=== PATIENT | male | born 1955 | race Caucasian/White ===

== ENCOUNTER 2018-05-22 21:45 | Emergency (ER) | payer OTHER, SELFPAY ==
[2018-05-22 21:59] VITALS: BP 123/69; PULSE 67; RESP 18; TEMP 37.1; O2SAT 97; BMI 20.9
--- NOTE | 2018-05-22 22:03 | ED_ITS ---
HPI - Extremity Problem General Chief complaint: Extremity Problem,Nontraumatic Stated complaint: right knee red and swelling Time Seen by Provider: 05/22/18 22:03 Source: patient Mode of arrival: ambulatory Limitations: no limitations History of Present Illness HPI Narrative: otherwise healthy 62-year-old male here for evaluation of redness on his right knee. He denies any trauma. He states that in the past he had a septic bursitis and stated that it presented itself and worsened within about 24 hr. He stated that this feels similar to that But in a different location. He states that he is leaving on a 5 day trip to [place] to do a job. 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 Related Data Previous Rx's Medication Instructions Recorded doxycycline hyclate 100 mg PO BID 7 Days #14 cap 05/22/18 Allergies Allergy/AdvReac Type Severity Reaction Status Date / Time Penicillins Allergy Verified 05/22/18 22:02 Review of Systems Constitutional Denies chills, Reports fatigue and Denies fever(s) Cardiovascular Denies chest pain and Denies dyspnea Respiratory Denies dyspnea Gastrointestinal Gastrointestinal: Denies abdominal pain Musculoskeletal Denies myalgias and Reports arthralgias ( Right knee) Integumentary/Breasts Comments: redness on the front of his right knee Endocrine Reports fatigue Hematologic/Lymphatic Denies easy bleeding and Denies easy bruising FOR[facility], LAT[facility] Medical History Healthy adult (Acute) Surgical History No pertinent past surgical history (Acute) Social History Smoking Status: Never smoker Exam Initial Vital Signs Initial Vital Signs: Vital Signs Temperature 98.7 F 05/22/18 21:59 Pulse Rate 67 05/22/18 21:59 Respiratory Rate 18 05/22/18 21:59 Blood Pressure 123/69 05/22/18 21:59 Pulse Oximetry 97 05/22/18 21:59 Const General: cooperative, comfortable, well developed, well groomed and No acute distress Orientation: alert, awake and oriented x3 HENMT Head: normal to inspection and normocephalic Resp Effort & Inspection: normal respiratory effort Skin Other: patient with very minimal redness just inferior to the patella on his right knee that does extend both medially and laterally. Does not extend inferior to the tibial tuberosity. No warmth to touch. No vesicles. Neuro Other: Sensation intact to light touch over the right knee Extrem Other: full range of motion of the right knee. No effusion. No swelling noted in the bursa around the knee. Psych Appearance: grossly normal and well kempt Course Vital Signs - 8 hr 05/22/18 21:59 Temperature 98.7 F Pulse Rate 67 Respiratory Rate 18 Blood Pressure 123/69 Pulse Oximetry 97 MDM - Extremity (Nontraumatic) MDM Narrative Medical decision making narrative: Patient does have full range of motion of the right knee. No trauma. Will hold on any x-rays. Does have some redness over the anterior knee. I have low suspicion for cellulitis. Patient is very concerned given his prior episodes of septic bursitis. There is no indication for aspiration today. After discussion with the patient we will discharge him with a prescription for antibiotics. He was informed to hold on this prescription unless the redness worsens or he starts to develop fevers of more pain. I recommended that he also started anti-inflammatories. He was given return precautions. He expressed understanding and agreement with plan Discharge Plan Departure Patient Disposition: Home Clinical Impression: Knee pain, right Instructions: DI for Cellulitis -- Adult, Bursitis, DI for Knee Pain Activity Restrictions/Additional Instructions: I would recommend that you start anti-inflammatories such as Motrin / Naprosyn as directed on the bottle for inflammation. I would recommend that you hold on filling the prescription of antibiotics unless the right knee redness worsens or you start to develop pain or fevers. You were given instructions for bursitis and cellulitis so that you can had information with regard to what to watch for. Follow up with your primary care doctor. Return to the emergency department for any new or worsening symptoms Prescriptions: New doxycycline hyclate 100 mg capsule 100 mg PO BID 7 Days Qty: 14 RF: 0
== END 2018-05-22 22:34 | disposition home or self-care (01) ==
PROVIDERS: Emergency Provider Emergency Medicine
DX: M25.561 Pain in right knee (principal)
CPT/HCPCS: 99282

== ENCOUNTER → 2019-06-01 09:42 | Outpatient (CLI) | payer OTHER, SELFPAY ==
--- NOTE | 2019-06-01 | DI.MRI.S_ITS ---
PROCEDURE: MR SHOULDER LT WO CON INDICATIONS: Pain in left shoulder TECHNIQUE: Noncontrast oblique coronal T2 fast spin echo with fat saturation, oblique sagittal T1 spin echo and T2 fast spin echo with fat saturation, axial T1 spin echo and T2 fast spin echo with fat saturation through the shoulder. COMPARISON: None. FINDINGS: Image quality: Diagnostic. Rotator cuff: No definite full-thickness tear of the rotator cuff is identified. Increased signal is present involving the distal supraspinatus and infraspinatus tendons with possible areas of low grade partial thickness tearing along the bursal and articular surfaces. The subscapularis and teres minor tendons are intact. There is no significant atrophy of the rotator cuff muscles. Bones and bursae: No acute fracture or dislocation is evident. There are mild degenerative changes of the glenohumeral joint with minimal degenerative cystic changes noted along the posterior margin of the humeral head. No significant glenohumeral joint effusion is identified. There are moderate degenerative changes of the acromial clavicular joint with reactive marrow changes present and mild downsloping of the lateral acromion. A small amount fluid is contained within the subacromial subdeltoid bursa. Capsule and soft tissues: Evaluation of the labrum and the glenohumeral ligaments is difficult without intra-articular contrast. No displaced labral tears are evident. Slight increase signal involving the superior labrum is noted. There is mild edema about the inferior glenohumeral ligament and within the region of the expected location of the joint capsule of the rotator interval. There is mild increased signal involving the long head of the biceps tendon along its intra-articular course without significant tearing appreciated. This tendon is normally positioned within the bicipital groove. IMPRESSION: 1. Low-grade partial-thickness tearing and tendinopathy of the supraspinatus and infraspinatus tendons. 2. Mild tendinopathy involving the long head of the biceps tendon. 3. Edema about the joint capsule is nonspecific. Clinical correlation to exclude adhesive capsulitis is recommended. A superimposed inferior glenohumeral ligament sprain is difficult to exclude. 4. Mild to moderate degenerative changes of the left shoulder joints. Dictated by: Kartik Corbett M.D. on 06/01/2019 at 10:14 Approved by: Kartik Corbett M.D. on 06/01/2019 at 10:16
--- NOTE | 2019-06-01 | DI.RAD.S_ITS ---
PROCEDURE: XR EYE FOREIGN BODY RT INDICATIONS: POSSIBLE OBJECT IN EYE TECHNIQUE: A single view of the orbits was acquired. COMPARISON: None. FINDINGS: Soft tissues: No metallic foreign bodies are visualized around the orbits. Bones: Bony structures appear unremarkable. Visualized sinuses appear clear. IMPRESSION: No radiopaque foreign bodies identified. Dictated by: Maribell Leblanc M.D. on 06/01/2019 at 10:07 Approved by: Maribell Leblanc M.D. on 06/01/2019 at 10:07
== END ==
PROVIDERS: Visit Provider Family Medicine
DX: M25.512 Pain in left shoulder (principal); M75.112 Incomplete rotator cuff tear or rupture of left shoulder, not specified as traumatic; M25.412 Effusion, left shoulder
CPT/HCPCS: 70030; 73221

== ENCOUNTER → 2020-04-30 16:53 | Outpatient (CLI) | payer OTHER, SELFPAY ==
--- NOTE | 2020-04-30 | DI.MRI.S_ITS ---
PROCEDURE: MR SHOULDER RT WO CON INDICATIONS: Radiculopathy, lumbar region TECHNIQUE: Noncontrast oblique coronal T2 fast spin echo with fat saturation, oblique sagittal T1 spin echo and T2 fast spin echo with fat saturation, axial T1 spin echo and T2 fast spin echo with fat saturation through the shoulder. COMPARISON: [facility], MR, MR SHOULDER LT WO CON, 06/01/2019, 10:04. FINDINGS: Image quality: Excellent. Rotator cuff: Tendinosis and low-grade articular and bursal surface partial thickness tear involving distal supraspinatus and infraspinatus is seen at their insertion on the humeral head extending to musculotendinous junction. Distal subscapularis tendinosis is also noted. No full-thickness rotator cuff tendon rupture. Sagittal images demonstrate no significant muscle atrophy. Bones and bursae: No bone marrow contusions or fractures. Moderate acromioclavicular joint osteoarthritic changes are seen with downward osteophyte formation depressing the musculotendinous junction of supraspinatus. Mild to moderate glenohumeral joint osteoarthritic changes also seen. No pathologic subacromial-subdeltoid or subcoracoid bursal fluid is present. Capsule and soft tissues: In the absence of intra-articular contrast, there is suggestion of superior anterior labral tear at 12 to 2 o'clock position. The glenohumeral ligaments appear intact. The long head of the biceps tendon demonstrates normal location and morphology. The rotator interval appears normal, without fibrosis. The coracohumeral ligament is normal in thickness. IMPRESSION: 1. Tendinosis and low-grade articular and bursal surface partial thickness tear involving distal supraspinatus and infraspinatus extending to musculotendinous junction. No full-thickness rotator cuff tendon rupture. Distal subscapularis tendinosis. 2. Suggestion of superior anterior labral tear at 12 to 2 o'clock position. 3. Moderate acromioclavicular joint and glenohumeral joint osteoarthritis. No fracture or dislocation. Dictated by: Ford Choudhury M.D. on 05/01/2020 at 8:47 Approved by: Ford Choudhury M.D. on 05/01/2020 at 8:52
== END ==
PROVIDERS: PCP Physician Assistant; Referring Provider Physician Assistant; Visit Provider Physician Assistant
DX: S46.011A Strain of muscle(s) and tendon(s) of the rotator cuff of right shoulder, initial encounter (principal); M25.511 Pain in right shoulder; M19.011 Primary osteoarthritis, right shoulder; M54.16 Radiculopathy, lumbar region; X58.XXXA Exposure to other specified factors, initial encounter
CPT/HCPCS: 73221

== ENCOUNTER → 2020-05-13 16:55 | Outpatient (CLI) | payer OTHER, SELFPAY ==
--- NOTE | 2020-05-13 | DI.MRI.S_ITS ---
PROCEDURE: MR THORACIC SPINE WO CON INDICATIONS: Upper back pain TECHNIQUE: Noncontrast sagittal T1 spine echo and T2 fast spin echo, sagittal STIR, axial T1 and T2 fast spin echo through the thoracic spine. COMPARISON: [facility], MR, MR LUMBAR SPINE WITHOUT CONTRAST, 10/14/2018, 13:03. [facility], MR, MR CERVICAL SPINE WITHOUT CONTRAST, 10/14/2018, 12:41. [facility], CR, XR THORACIC SPINE 2 VIEWS, 05/13/2020, 16:00. FINDINGS: Image quality: Excellent. Alignment and Curvature: Mild dextroconvex scoliotic curvature is seen. Bone Marrow: Marrow is of normal overall signal. No acute vertebral body compression fractures. Spinal Cord: Visualized spinal cord is normal in size and signal. Paraspinous Soft Tissues: No paravertebral masses. Miscellaneous: At T6-T7, there is a central disc protrusion, as on series 7, image 29 and on series 6 image 8. There is mild central canal narrowing, with mild to moderate mass effect upon the ventral spinal cord. At T7-T8, there is a mild central/right disc osteophyte protrusion seen, as on series 8, image 7. Minimal central canal narrowing is seen. No associated mass effect is seen. Milder degenerative changes are seen elsewhere. No significant neural foraminal narrowing can be seen. IMPRESSION: At the T6-T7 level, there is a central disc protrusion, with associated mass effect upon the ventral spinal cord. Milder degenerative changes are seen elsewhere. Mild dextroconvex thoracic scoliotic curvature is seen. Dictated by: Greg Lucia M.D. on 05/13/2020 at 18:08 Approved by: Greg Lucia M.D. on 05/13/2020 at 18:10
== END ==
PROVIDERS: PCP Physician Assistant; Referring Provider Physician Assistant; Visit Provider Physician Assistant
DX: M51.14 Intervertebral disc disorders with radiculopathy, thoracic region (principal); M47.24 Other spondylosis with radiculopathy, thoracic region; M41.84 Other forms of scoliosis, thoracic region
CPT/HCPCS: 72146

== ENCOUNTER → 2021-03-31 13:45 | Outpatient (CLI) | payer OTHER, SELFPAY ==
--- NOTE | 2021-03-31 13:45 | DI.MRI.S_ITS ---
PROCEDURE: MR CERVICAL SPINE WO/W CON INDICATIONS: Right arm radiculopathy TECHNIQUE: Noncontrast sagittal T1 spin echo and T2 fast spin echo, sagittal STIR, foraminal oblique sagittal T2 fast spin echo, axial gradient echo or T2 fast spin echo through the cervical spine. After the administration of contrast, axial and sagittal T1 spin echo with fat saturation through the cervical spine. COMPARISON: None. FINDINGS: Image quality: Excellent. Alignment and curvature: There is normal bony alignment. Marrow: Marrow is normal in overall signal, without suspicious enhancement. Spinal cord: Visualized spinal cord has normal size and signal. No cerebellar tonsillar herniation. No abnormal intramedullary enhancement. Regional soft tissues: No paravertebral masses or suspicious enhancement. C2-3: No spinal canal or neural foraminal stenosis. C3-4: Mild right neural foraminal narrowing due to facet and uncovertebral hypertrophy. No spinal canal stenosis. C4-5: Mild bilateral neural foraminal narrowing due to facet and uncovertebral hypertrophy. No spinal canal stenosis. C5-6: Moderate bilateral neural foraminal narrowing due to facet and uncovertebral hypertrophy. No spinal canal stenosis. C6-7: Severe right and mild left neural foraminal narrowing due to facet and uncovertebral hypertrophy. C7-T1: No spinal canal or neural foraminal stenosis. IMPRESSION: Multilevel multifactorial degenerative changes resulting in varying degrees of neural foraminal stenosis, severe on the right at C6-C7 and moderate on the right at C5-C6. Correlate for any corresponding right C6 or C7 radicular symptoms. Dictated by: David Hudson M.D. on 03/31/2021 at 16:03 Approved by: David Hudson M.D. on 03/31/2021 at 16:13
--- NOTE | 2021-03-31 13:45 | DI.MRI.S_ITS ---
PROCEDURE: MR HAND RT WO CON INDICATIONS: Right thumb pain TECHNIQUE: Noncontrast coronal T1 spin echo and T2 fast spin echo with fat saturation, axial proton density fast spin echo and T2 fast spin echo with fat saturation, sagittal T1 spin echo and STIR through the hand and fingers. COMPARISON: [facility] ([place] CR, XR HAND RT MIN 3V, 11/25/2020, 11:21. FINDINGS: Image quality: Excellent. Bones: The bones are normally aligned, without marrow contusions or fractures. No intra-osseous lesions. Small chronic cystic changes are seen in the distal ulna as well as in the proximal lunate. There is neutral ulnar variance. The 1st metacarpophalangeal joint is normally aligned. Mild 1st metacarpophalangeal osteoarthrosis. Minimal degenerative changes are seen at the 1st carpometacarpal joint. Soft tissues: Trace edema is seen in the distal abductor pollicis brevis muscle (image 42 of series 7 and image 7 of series 9) that is suspicious for a low-grade strain. Visualized muscles demonstrate otherwise normal bulk and internal signal. No intramuscular masses identified. No ganglion cysts. The ulnar and radial collateral ligaments at the 1st metacarpophalangeal joint appear to be intact. The adductor aponeurosis is intact. The volar plate is intact. The extensor tendon insertion appears to be intact. A small focus of micro talc artifact is seen at the volar aspect of the distal thumb adjacent to the skin surface, corresponding to the punctate foreign body in the prior radiograph from 11/25/2020. IMPRESSION: 1. Suspected low-grade strain of the distal abductor pollicis brevis muscle near its distal insertion onto the 1st proximal phalangeal base. 2. No acute osseous abnormality. No significant ligamentous or tendon injury is seen. 3. Punctate focus of micrometallic artifact at the volar aspect of the thumb adjacent to the skin surface may represent a tiny metallic foreign body, which may be in the skin. Dictated by: Iván Tate M.D. on 03/31/2021 at 15:33 Approved by: Iván Tate M.D. on 03/31/2021 at 15:46
== END ==
PROVIDERS: PCP Physician Assistant; Referring Provider Physician Assistant; Visit Provider Physician Assistant
DX: M47.22 Other spondylosis with radiculopathy, cervical region (principal); M54.2 Cervicalgia; S63.681A Other sprain of right thumb, initial encounter; M79.644 Pain in right finger(s); G89.29 Other chronic pain
CPT/HCPCS: 72156; 73218; A9579

== ENCOUNTER → 2021-04-02 13:43 | Outpatient (CLI) | payer OTHER, SELFPAY ==
--- NOTE | 2021-04-02 13:44 | DI.RAD.S_ITS ---
PROCEDURE: XR CERVICAL SPINE 4V OR 5V INDICATIONS: NECK PAIN TECHNIQUE: 5 views of the cervical spine acquired. COMPARISON: None. FINDINGS: Bones: No fractures or dislocations to the C7-T1 level. Degenerative endplate changes are noted throughout cervical spine. Bilateral facet hypertrophic changes also seen. There is grade 1 anterolisthesis of C7 on T1. Oblique images demonstrate bilateral bony foraminal stenosis at C4-5 and C5-6 levels. Soft tissues: No prevertebral soft tissue swelling. IMPRESSION: Degenerative disc disease throughout cervical spine with bilateral bony foraminal stenosis at C4-5 and C5-6 levels. No acute fracture or dislocation. Dictated by: Ford Choudhury M.D. on 04/02/2021 at 15:19 Approved by: Ford Choudhury M.D. on 04/02/2021 at 15:20
== END ==
PROVIDERS: PCP Physician Assistant; Referring Provider Physical Medicine & Rehabilitation; Visit Provider Physical Medicine & Rehabilitation
DX: M50.31 Other cervical disc degeneration, high cervical region (principal); M48.02 Spinal stenosis, cervical region
CPT/HCPCS: 72050

== ENCOUNTER → 2021-04-14 08:20 | Outpatient (CLI) | payer OTHER, SELFPAY ==
[2021-04-14 19:54] LABS: Add Manual Diff / Slide Review NO; Basophils Absolute Auto 100 /uL (0-100); Basophils Percent Auto 1.3 % (0-2); Eosinophils Absolute Auto 100 /uL (0-450); Eosinophils Percent Auto 2.3 % (2-4); Hematocrit 46.5 % (41-53); Hemoglobin 15.2 g/dL (13.5-17.5); Lymphocytes Absolute Auto 1700 /uL (1100-4500); Lymphocytes Percent Auto 30.5 % (25-40); Mean Corpuscular HGB Conc 32.8 % (30-36); Mean Corpuscular Volume 91.6 fL (80-100); Monocytes Absolute Auto 600 /uL (0-900); Monocytes Percent Auto 11.5 % (3-14); Neutrophils Absolute Auto 3000 /uL (1500-7000); Neutrophils Percent Auto 54.4 % (50-75); Platelet Count 250 X10^3/uL (150-400); Red Blood Cell Count 5.07 X10^6/uL (4.5-5.9); Red Cell Distribution Width 13.3 % (11.6-14.8); White Blood Cell Count 5.5 X10^3/uL (4.5-11.0)
[2021-04-14 20:02] LABS: Alanine Aminotransferase 22 IU/L (<50); Albumin 4.4 g/dL (3.5-5.0); Albumin Globulin Ratio 1.4 (1.0-2.8); Alkaline Phosphatase 56 U/L (38-126); Aspartate Aminotransferase 35 IU/L (17-59); BUN Creatinine Ratio 13.7 (6-22); Blood Urea Nitrogen 13 mg/dL (9-20); Calcium 9.7 mg/dL (8.4-10.2); Carbon Dioxide 32 mmol/L (22-32); Chloride 101 mmol/L (98-107); Cholesterol 193 mg/dL (140-199); Estimated Glomerular Filt Rate > 60.0 mL/min (>60); Globulin 3.2 g/dL (1.7-4.1); Glucose 96 mg/dL (80-110); HDL Cholesterol 69 mg/dL (40-60); HEMOLYSIS < 15 (0-50); LDL Cholesterol Calculated 110 mg/dL (<100); Potassium 4.2 mmol/L (3.4-5.1); Sodium 138 mmol/L (137-145); Total Protein 7.6 g/dL (6.3-8.2); Triglycerides 71 mg/dL (35-150)
[2021-04-14 20:17] LABS: Free T3, Triiodothyronine Free 3.82 pg/mL (2.77-5.27)
[2021-04-14 20:31] LABS: TSH w/ Reflex to FT4 4.45 uIU/mL (0.47-4.68)
[2021-04-14 20:32] LABS: Prostate Specific Antigen Scrn 0.498 ng/mL (0.1-4.0)
== END ==
PROVIDERS: PCP Physician Assistant; Visit Provider Physician Assistant
DX: E78.00 Pure hypercholesterolemia, unspecified (principal); M62.838 Other muscle spasm; M89.8X9 Other specified disorders of bone, unspecified site; Z12.5 Encounter for screening for malignant neoplasm of prostate; M25.50 Pain in unspecified joint; T88.7XXA Unspecified adverse effect of drug or medicament, initial encounter
CPT/HCPCS: 80053; 80061; 84443; 84481; 85025; G0103

== ENCOUNTER → 2021-05-24 11:07 | Outpatient (CLI) | payer OTHER, SELFPAY ==
--- NOTE | 2021-05-24 11:45 | DI.MRI.S_ITS ---
PROCEDURE: MR SHOULDER RT WO CON INDICATIONS: worsening right shoulder dysfunction TECHNIQUE: Noncontrast oblique coronal T2 fast spin echo with fat saturation, oblique sagittal T1 spin echo and T2 fast spin echo with fat saturation, axial T1 spin echo and T2 fast spin echo with fat saturation through the shoulder. COMPARISON: [facility] [place], CR, XR SHOULDER 2+ VIEWS RIGHT, 04/30/2020, 15:41. [facility], MR, MR SHOULDER RT WO CON, 04/30/2020, 17:24. FINDINGS: Image quality: Excellent. Rotator cuff: There is high-grade partial thickness tear of the distal supraspinatus and infraspinatus tendons along both articular and bursal surface. The subscapularis tendon appears intact with mild tendinosis. Sagittal images demonstrate no rotator cuff muscle atrophy. Bones and bursae: No bone marrow contusions or fractures. Moderate acromioclavicular and glenohumeral joint degeneration. The acromion demonstrates conventional anatomy, without an os acromiale. No pathologic subacromial-subdeltoid or subcoracoid bursal fluid is present. Capsule and soft tissues: There is degenerative fraying of the anterior superior labrum. The long head of the biceps tendon demonstrates normal location and morphology. The rotator interval appears normal, without fibrosis. The coracohumeral ligament is normal in thickness. IMPRESSION: 1. High-grade partial thickness tear of the distal supraspinatus and infraspinatus tendons. No tendon retraction or muscle atrophy. 3. Mild subscapularis tendinitis. 3. Moderate acromioclavicular joint degeneration. 4. Degenerative fraying of the anterior superior labrum. Dictated by: Maribell Leblanc M.D. on 05/26/2021 at 9:10 Approved by: Maribell Leblanc M.D. on 05/26/2021 at 9:40
== END ==
PROVIDERS: PCP Physician Assistant; Referring Provider Physician Assistant; Visit Provider Physician Assistant
DX: M75.111 Incomplete rotator cuff tear or rupture of right shoulder, not specified as traumatic (principal); M25.511 Pain in right shoulder; M19.011 Primary osteoarthritis, right shoulder; M75.81 Other shoulder lesions, right shoulder; G89.29 Other chronic pain
CPT/HCPCS: 73221

== ENCOUNTER → 2022-03-18 11:13 | Outpatient (CLI) | payer OTHER, SELFPAY ==
[2022-03-18 19:32] LABS: Add Manual Diff / Slide Review NO; Basophils Absolute Auto 200 /uL (0-100); Basophils Percent Auto 3.5 % (0-2); Eosinophils Absolute Auto 0 /uL (0-450); Eosinophils Percent Auto 1.1 % (2-4); Hematocrit 43.4 % (41-53); Hemoglobin 14.8 g/dL (13.5-17.5); Lymphocytes Absolute Auto 1700 /uL (1100-4500); Lymphocytes Percent Auto 37.9 % (25-40); Mean Corpuscular Hemoglobin 30.5 PG (26-34); Mean Corpuscular Volume 89.8 fL (80-100); Monocytes Absolute Auto 400 /uL (0-900); Monocytes Percent Auto 9.6 % (3-14); Neutrophils Absolute Auto 2200 /uL (1500-7000); Neutrophils Percent Auto 47.9 % (50-75); Platelet Count 237 X10^3/uL (150-400); Red Blood Cell Count 4.84 X10^6/uL (4.5-5.9); Red Cell Distribution Width 13.5 % (11.6-14.8); White Blood Cell Count 4.6 X10^3/uL (4.5-11.0)
[2022-03-18 19:58] LABS: Alanine Aminotransferase 21 IU/L (<50); Albumin 4.3 g/dL (3.5-5.0); Albumin Globulin Ratio 1.4 (1.0-2.8); Alkaline Phosphatase 47 U/L (38-126); Aspartate Aminotransferase 32 IU/L (17-59); BUN Creatinine Ratio 11.7 (6-22); Bilirubin Total 0.7 mg/dL (0.2-1.3); Blood Urea Nitrogen 12 mg/dL (9-20); Calcium 9.1 mg/dL (8.4-10.2); Carbon Dioxide 29 mmol/L (22-32); Chloride 103 mmol/L (98-107); Cholesterol 183 mg/dL (140-199); Estimated Glomerular Filt Rate > 60 mL/min (>60); Glucose 98 mg/dL (80-110); HDL Cholesterol 58 mg/dL (40-60); HEMOLYSIS < 15 (0-50); LDL Cholesterol Calculated 111 mg/dL (<100); Potassium 4.4 mmol/L (3.4-5.1); Sodium 138 mmol/L (137-145); Total Protein 7.3 g/dL (6.3-8.2); Triglycerides 68 mg/dL (35-150)
[2022-03-18 20:16] LABS: Prolactin 13.8 ng/mL (3.7-17.9)
[2022-03-18 20:32] LABS: Testosterone 689 ng/dL (71.8-623)
[2022-03-20 16:19] LABS: Hep C Virus Ab w/Reflex Quant NEGATIVE s/c (NEGATIVE)
[2022-03-25 15:47] LABS: Estrogen 67 pg/mL (56-213)
== END ==
PROVIDERS: PCP Physician Assistant; Visit Provider Physician Assistant
DX: E78.00 Pure hypercholesterolemia, unspecified (principal); M25.50 Pain in unspecified joint; N64.4 Mastodynia; Z11.59 Encounter for screening for other viral diseases
CPT/HCPCS: 80053; 80061; 82672; 84146; 84403; 85025; 86803

== ENCOUNTER → 2023-02-16 14:08 | Outpatient (CLI) | payer MEDICARE, OTHER, SELFPAY ==
--- NOTE | 2023-02-16 14:09 | DI.MRI.S_ITS ---
PROCEDURE: MR CERVICAL SPINE WO CON INDICATIONS: worsening neck pain and left radiculopathy. TECHNIQUE: Noncontrast sagittal T1 spin echo and T2 fast spin echo, sagittal STIR, foraminal oblique sagittal T2 fast spin echo, and axial gradient echo or T2 fast spin echo through the cervical spine. COMPARISON: [facility], MR, MR CERVICAL SPINE WO/W CON, 03/31/2021, 14:19. [facility], CR, XR CERVICAL SPINE 4V OR 5V, 04/02/2021, 13:44. FINDINGS: Image quality: Excellent. Alignment and Curvature: Loss of normal cervical lordosis. 2 mm of retrolisthesis of C4 on C5. 3 mm of retrolisthesis of C5 on C6 and C6 on C7. 2 mm of anterolisthesis of C7 on T1. Bone Marrow: Marrow demonstrates normal overall signal. Mild reactive signal throughout the endplates of the cervical spine, most prominently at C4-C5, C5-C6, and C6-C7. Spinal Cord: Visualized spinal cord has normal size and signal. No cerebellar tonsillar herniation. Paraspinous Soft Tissues: No paravertebral masses. Prevertebral soft tissues are normal in thickness. C2-C3: Moderate disc desiccation. Mild facet and uncovertebral hypertrophy. No significant canal stenosis. Mild left foraminal stenosis. No right foraminal stenosis. No significant change. C3-C4: Moderate disc desiccation. Mild facet and uncovertebral hypertrophy. Mild canal stenosis. Mild bilateral foraminal stenosis. No significant change. C4-C5: Mild disc desiccation and diffuse disc bulge with superimposed left paracentral protrusion. Mild facet and uncovertebral hypertrophy bilaterally. Mild canal stenosis. Moderate right and mild left foraminal stenosis. No significant change. C5-C6: Mild disc height loss. Moderate disc desiccation. Mild diffuse disc bulge. Mild facet and uncovertebral hypertrophy bilaterally. Moderate canal stenosis. Severe bilateral foraminal stenosis. Bilateral C6 nerve root compression. No significant change. C6-C7: Mild disc height loss. Moderate disc desiccation. Mild diffuse disc bulge with small superimposed broad-based left paracentral protrusion. Mild facet and uncovertebral hypertrophy. Moderate canal stenosis. Severe right and moderate left foraminal stenosis. Right C7 nerve root compression. No significant change. C7-T1: Mild disc desiccation. Mild facet and uncovertebral hypertrophy. No significant canal stenosis. Mild left greater than right foraminal stenosis. No significant change. IMPRESSION: 1. Multilevel degenerative disc and facet disease, as well as uncovertebral hypertrophy. 2. Multilevel canal stenoses, worst at C5-C6 and C6-C7 where there are moderate canal stenoses. 3. Multilevel foraminal stenoses, worst at C5-C6 and C6-C7 where there is associated intraforaminal nerve root compression. Recommend correlation with clinical symptoms to ascertain relevance of these findings. Dictated by: Laron Ly M.D. on 02/16/2023 at 15:03 Approved by: Laron Ly M.D. on 02/16/2023 at 15:07
== END ==
PROVIDERS: PCP Physician Assistant; Referring Provider Physician Assistant; Visit Provider Physician Assistant
DX: M50.122 Cervical disc disorder at C5-C6 level with radiculopathy (principal); M48.02 Spinal stenosis, cervical region; M47.22 Other spondylosis with radiculopathy, cervical region
CPT/HCPCS: 72141

== ENCOUNTER → 2023-03-09 09:38 | Outpatient (CLI) | payer MEDICARE, OTHER, SELFPAY ==
[2023-03-09 19:36] LABS: Add Manual Diff / Slide Review NO; Basophils Absolute Auto 200 /uL (0-100); Basophils Percent Auto 5.1 % (0-2); Eosinophils Absolute Auto 200 /uL (0-450); Eosinophils Percent Auto 4.5 % (2-4); Hematocrit 44.9 % (41-53); Hemoglobin 15.4 g/dL (13.5-17.5); Lymphocytes Absolute Auto 1600 /uL (1100-4500); Lymphocytes Percent Auto 34.7 % (25-40); Mean Corpuscular HGB Conc 34.4 % (30-36); Mean Corpuscular Hemoglobin 31.1 PG (26-34); Mean Corpuscular Volume 90.4 fL (80-100); Monocytes Absolute Auto 400 /uL (0-900); Monocytes Percent Auto 9.7 % (3-14); Neutrophils Absolute Auto 2100 /uL (1500-7000); Platelet Count 220 X10^3/uL (150-400); Red Blood Cell Count 4.96 X10^6/uL (4.5-5.9); Red Cell Distribution Width 13.2 % (11.6-14.8); White Blood Cell Count 4.5 X10^3/uL (4.5-11.0)
[2023-03-09 19:42] LABS: Alanine Aminotransferase 44 IU/L (<50); Albumin 4.6 g/dL (3.5-5.0); Albumin Globulin Ratio 1.5 (1.0-2.8); Alkaline Phosphatase 117 U/L (38-126); Aspartate Aminotransferase 58 IU/L (17-59); BUN Creatinine Ratio 11.3 (6-22); Blood Urea Nitrogen 11 mg/dL (9-20); Calcium 9.5 mg/dL (8.4-10.2); Carbon Dioxide 27 mmol/L (22-32); Chloride 101 mmol/L (98-107); Cholesterol 194 mg/dL (140-199); Estimated Glomerular Filt Rate > 60 mL/min (>60); Globulin 3.1 g/dL (1.7-4.1); Glucose 97 mg/dL (80-110); HDL Cholesterol 70 mg/dL (40-60); LDL Cholesterol Calculated 107 mg/dL (<100); Potassium 4.1 mmol/L (3.4-5.1); Sodium 139 mmol/L (137-145); Total Protein 7.7 g/dL (6.3-8.2); Triglycerides 87 mg/dL (35-150)
[2023-03-09 19:47] LABS: HEMOLYSIS 72 (0-50)
[2023-03-09 20:09] LABS: Prostate Specific Antigen Scrn 0.577 ng/mL (0.1-4.0)
== END ==
PROVIDERS: PCP Physician Assistant; Visit Provider Physician Assistant
DX: E78.00 Pure hypercholesterolemia, unspecified (principal); M89.8X9 Other specified disorders of bone, unspecified site; Z12.5 Encounter for screening for malignant neoplasm of prostate; M25.50 Pain in unspecified joint; M99.09 Segmental and somatic dysfunction of abdomen and other regions
CPT/HCPCS: 80053; 80061; 85025; G0103

== ENCOUNTER → 2024-03-02 10:04 | Outpatient (CLI) | payer MEDICARE, OTHER, SELFPAY ==
[2024-03-02 20:22] LABS: Alanine Aminotransferase 25 IU/L (<50); Albumin 4.2 g/dL (3.5-5.0); Albumin Globulin Ratio 1.4 (1.0-2.8); Alkaline Phosphatase 57 U/L (38-126); Aspartate Aminotransferase 70 IU/L (17-59); BUN Creatinine Ratio 11.4 (6-22); Bilirubin Total 0.8 mg/dL (0.2-1.3); Blood Urea Nitrogen 13 mg/dL (9-20); Calcium 9.1 mg/dL (8.4-10.2); Carbon Dioxide 29 mmol/L (22-32); Chloride 105 mmol/L (98-107); Cholesterol 180 mg/dL (140-199); Estimated Glomerular Filt Rate > 60 mL/min (>60); Globulin 2.9 g/dL (1.7-4.1); Glucose 95 mg/dL (80-110); HDL Cholesterol 58 mg/dL (40-60); HEMOLYSIS 15 (0-50); LDL Cholesterol Calculated 110 mg/dL (<100); Potassium 4.1 mmol/L (3.4-5.1); Sodium 138 mmol/L (137-145); Total Protein 7.1 g/dL (6.3-8.2); Triglycerides 62 mg/dL (35-150)
[2024-03-02 20:48] LABS: Prostate Specific Antigen Scrn 0.649 ng/mL (0.1-4.0)
== END ==
PROVIDERS: PCP Physician Assistant; Referring Provider Physician Assistant; Visit Provider Physician Assistant
DX: Z13.6 Encounter for screening for cardiovascular disorders (principal); Z12.5 Encounter for screening for malignant neoplasm of prostate; M62.838 Other muscle spasm
CPT/HCPCS: 80053; 80061; G0103

== ENCOUNTER → 2024-03-17 10:15 | Outpatient (CLI) | payer MEDICARE, OTHER, SELFPAY | PROVIDERS: PCP Physician Assistant; Visit Provider Physician Assistant | DX: Z12.11 Encounter for screening for malignant neoplasm of colon (principal) | CPT/HCPCS: 82274 ==

== ENCOUNTER → 2024-05-03 15:39 | Outpatient (CLI) | payer MEDICARE, OTHER, SELFPAY ==
--- NOTE | 2024-05-03 15:40 | DI.MRI.S_ITS ---
PROCEDURE: MR CERVICAL SPINE WO CON INDICATIONS: inc. symptoms. UE weak. LE spasms. near sync w/neck exten TECHNIQUE: Noncontrast sagittal T1 spin echo and T2 fast spin echo, sagittal STIR, foraminal oblique sagittal T2 fast spin echo, and axial gradient echo or T2 fast spin echo through the cervical spine. COMPARISON: [facility], MR, MR CERVICAL SPINE WO CON, 02/16/2023, 14:22. FINDINGS: Image quality: Excellent. Alignment and Curvature: Straightening of the normal cervical lordosis. Mild retrolisthesis of C4 on C5, C5 on C6 and C6 on C7. Mild anterolisthesis of C7 on T1. Bone Marrow: Mild reactive endplate changes. Marrow demonstrates normal overall signal. Spinal Cord: Visualized spinal cord has normal size and signal. No cerebellar tonsillar herniation. Paraspinous Soft Tissues: No paravertebral masses. Prevertebral soft tissues are normal in thickness. C2-C3: Disc desiccation. No central canal or neural foraminal stenosis. C3-C4: Disc desiccation and mild height loss. Mild posterior disc osteophyte complex. Minimal central canal stenosis. Facet and uncovertebral arthropathy. Mild bilateral neural foraminal stenosis is stable. C4-C5: Disc desiccation and mild posterior disc osteophyte complex. Mild central canal stenosis. Facet and uncovertebral arthropathy. Moderate right and mild left neural foraminal stenosis is stable. C5-C6: Disc desiccation and posterior disc osteophyte complex. Moderate central canal stenosis. Facet and uncovertebral arthropathy. Severe bilateral neural foraminal stenosis. Stable compared to prior. C6-C7: Disc desiccation and mild posterior disc osteophyte complex. Facet and uncovertebral arthropathy. Stable moderate central canal stenosis. Stable severe right and moderate left neural foraminal stenosis. C7-T1: Disc desiccation. No central canal or neural foraminal stenosis. IMPRESSION: 1. Multilevel degenerative changes of the cervical spine which are overall similar appearance compared to prior exam. 2. Moderate central canal stenosis at C5-C6 and C6-C7. 3. Severe neural foraminal stenosis bilaterally at C5-C6 and on the right at C6-C7. Dictated by: Kehinde Mccurdy M.D. on 05/03/2024 at 19:02 Approved by: Kehinde Mccurdy M.D. on 05/03/2024 at 19:06
--- NOTE | 2024-05-03 15:40 | DI.US.S_ITS ---
PROCEDURE: US CAROTID DOPPLER BI INDICATIONS: NEAR SYNCOPE WITH NECK PRESSURES TECHNIQUE: Color and pulse Doppler interrogation was performed of both carotid systems, with image documentation and velocity measurements. COMPARISON: None. FINDINGS: Stenosis calculations are based on SRU (Society of Radiologists in Ultrasound) criteria. The flow velocities and the arterial waveforms are normal within both carotid arterial systems. The estimated degree of internal carotid artery stenosis is less than 50%. Antegrade flow is confirmed within both vertebral arteries. IMPRESSION: No hemodynamically significant stenosis is seen. Dictated by: Greg Lucia M.D. on 05/03/2024 at 16:08 Approved by: Greg Lucia M.D. on 05/03/2024 at 16:09
--- NOTE | 2024-05-03 15:40 | DI.MRI.S_ITS ---
PROCEDURE: MR ANGIO NECK W CON INDICATIONS: near syncope with pressure to posterior neck TECHNIQUE: Axial and sagittal TruFISP through the neck. Coronal dynamic MRA after the administration of contrast in the arterial and venous phases, with rotating 3-dimensional maximum intensity projection (MIP) reformats constructed from subtraction images. COMPARISON: None. FINDINGS: Image quality: Excellent. Carotid system: Great vessels demonstrate a conventional anatomy as they arise from the aortic arch. The origins of the common carotid arteries appear normal. The calibers and courses of the common carotid arteries are likewise normal. The carotid bifurcations appear normal bilaterally. The internal carotid arteries are widely patent up to the [place]. Posterior circulation: The origins of the vertebral arteries are unremarkable. The more superior portions of the vertebral arteries demonstrate normal course and caliber. Vertebral arteries join to form a normal appearing basilar artery. Miscellaneous: Subclavian arteries are patent throughout. Pre-contrast images through the neck demonstrate no soft tissue abnormalities. IMPRESSION: No significant arterial abnormalities. Any quantitative measurements of stenosis were performed using NASCET criteria. Dictated by: Kehinde Mccurdy M.D. on 05/03/2024 at 19:06 Approved by: Kehinde Mccurdy M.D. on 05/03/2024 at 19:08
== END ==
PROVIDERS: PCP Physician Assistant; Referring Provider Physician Assistant; Visit Provider Physician Assistant
DX: M47.22 Other spondylosis with radiculopathy, cervical region (principal); M48.02 Spinal stenosis, cervical region; R55 Syncope and collapse; R29.898 Other symptoms and signs involving the musculoskeletal system; M62.838 Other muscle spasm
CPT/HCPCS: 70548; 72141; 93880; A9579

== ENCOUNTER → 2025-04-02 11:11 | Outpatient (CLI) | payer MEDICARE, OTHER, SELFPAY ==
[2025-04-02 19:20] LABS: Add Manual Diff / Slide Review NO; Hematocrit 43.0 % (41-53); Hemoglobin 14.8 g/dL (13.5-17.5); Lymphocytes Absolute Auto 1500 /uL (1100-4500); Mean Corpuscular HGB Conc 34.3 % (30-36); Mean Corpuscular Hemoglobin 30.8 PG (26-34); Mean Corpuscular Volume 89.7 fL (80-100); Platelet Count 236 X10^3/uL (150-400)
[2025-04-02 19:26] LABS: Alanine Aminotransferase 27 IU/L (<50); Albumin 4.4 g/dL (3.5-5.0); Albumin Globulin Ratio 1.5 (1.0-2.8); Alkaline Phosphatase 56 U/L (38-126); Blood Urea Nitrogen 16 mg/dL (9-20); Calcium 9.4 mg/dL (8.4-10.2); Carbon Dioxide 29 mmol/L (22-32); Chloride 103 mmol/L (98-107); Cholesterol 187 mg/dL (140-199); Estimated Glomerular Filt Rate > 60 mL/min (>60); Globulin 3.0 g/dL (1.7-4.1); Glucose 97 mg/dL (70-99); HDL Cholesterol 68 mg/dL (40-60); HEMOLYSIS 17 (0-50); Potassium 4.4 mmol/L (3.4-5.1); Sodium 138 mmol/L (137-145); Total Protein 7.4 g/dL (6.3-8.2); Triglycerides 78 mg/dL (35-150)
== END ==
PROVIDERS: PCP Physician Assistant; Visit Provider Physician Assistant
DX: R53.83 Other fatigue (principal); Z13.6 Encounter for screening for cardiovascular disorders; Z12.11 Encounter for screening for malignant neoplasm of colon
CPT/HCPCS: 80053; 80061; 85025